=== PATIENT | male | born 1965 | race Caucasian/White ===

== ENCOUNTER 2016-06-30 12:52 | Emergency (ER) | payer OTHER ==
[2016-06-30] MEDS ORDERED: IBUPROFEN 200 MG TAB PO ONE (13:21)
[2016-06-30 13:52] LABS: COLOR YELLOW; LEUKOCYTE ESTERASE,URINE NEGATIVE (NEGATIVE); NITRITE,URINE NEGATIVE (NEGATIVE)
[2016-06-30] MEDS ORDERED: NS 1,000 ML IV ONE (13:55)
[2016-06-30 14:14] LABS: % IMMATURE GRANULYOCYTES 0.3 % (0.0-1.1); ABSOLUTE IMMATURE GRANULOCYTES 0.02 10^3/uL (0.00-0.10); ADD DIFF? NO; ADD MORPH? NO; ADD SCAN? NO; ATYPICAL LYMPHOCYTE FLAG 10 (0-99); FRAGMENT RBC FLAG 0 (0-99); HEMATOCRIT 39.7 % (40.0-51.0); HEMOGLOBIN 14.1 g/dL (13.7-17.5); LEFT SHIFT FLG 0 (0-99); LIPEMIA HEMOLYSIS FLAG 90 (0-99); MEAN CELL HEMOGLOBIN 32.5 pg (27.9-34.1); MEAN CELL HEMOGLOBIN CONCENTR. 35.5 g/dL (32.4-36.7); MEAN CELL VOLUME 91.5 fL (81.5-99.8); MEAN PLATELET VOLUME 9.3 fL (8.7-11.7); PLATELET CLUMPS FLAG 0 (0-99); PLATELET COUNT 261 10^3/uL (150-400); RED BLOOD CELL COUNT 4.34 10^6/uL (4.40-6.38); RED CELL DISTRIBUTION WIDTH 12.6 % (11.5-15.2)
[2016-06-30 14:32] LABS: ANION GAP 6 mEq/L (8-16); CALCIUM 9.5 mg/dL (8.5-10.4); CARBON DIOXIDE 26 mEq/l (22-31); CHLORIDE 105 mEq/L (97-110); CREATININE 1.2 mg/dL (0.7-1.3); GLOMERULAR FILTRATION RATE > 60; GLUCOSE 91 mg/dL (70-100); POTASSIUM 4.2 mEq/L (3.5-5.2); SODIUM 137 mEq/L (134-144)
[2016-06-30] MEDS ORDERED: IOPAMIDOL (ISOVUE-300) 100 ML BTL IV ONE (15:22)
--- NOTE | 2016-06-30 16:46 | UCPHY ---
H & P Patient Type: Established Chief Complaint Nursing Narrative: c/o bilat flank pain with Nausea today pain for 3 days with freq urinations- states laying flat inc. pain Time Seen by Provider: 06/30/16 13:49 HPI/ROS: This patient reports bilateral flank pain for 2 days gradual in onset the feels different to him than typical musculoskeletal back pain that he has had at times. Symptoms worsen when he is supine he reports simultaneous onset of lower abdominal pain that is bilateral. He describes the nature the pain as sharp at times and achy other times. Does not seem directly related to movement. He has taken Motrin with partial improvement-600 mg last night and 600 on arrival here with no other medications. He does feel he has partial relief from the Motrin. He also reports associated urinary symptoms of urgency and frequency which are unusual for him. ROS: No fevers. No constitutional symptoms. HEENT: No URI symptoms. No sore throat. Pulmonary: No shortness of breath or chest pain. Cardiovascular: No lightheadedness. No lower extremity swelling. No leg discoloration. : No testicle pain or swelling. No urethral discharge. No dysuria. No genital lesions. Musculoskeletal: No acute injuries. Neuro: No numbness tingling or focal weakness. No bowel or bladder incontinence. 10 point ROS is otherwise negative. Source: Patient Exam Limitations: No limitations - Personal History Current Tetanus Diphtheria and Acellular Pertussis (TDAP): Yes - Medical/Surgical History Hx Asthma: Yes Hx Chronic Respiratory Disease: No Hx Diabetes: No Hx Cardiac Disease: No Hx Renal Disease: No Hx Cirrhosis: No Hx Alcoholism: No Hx HIV/AIDS: No Hx Splenectomy or Spleen Trauma: No Other PMH: ortho - Family History Significant Family History: No pertinent family hx - Social History Smoking Status: Never smoked Alcohol Use: Occasionally Drug Use: None - Physical Exam Exam: General Appearance: Alert, no distress. Eyes: Pupils equal and round no pallor or injection. ENT, Mouth: Mucous membranes moist. Respiratory: There are no retractions, lungs are clear to auscultation. Cardiovascular: Regular rate and rhythm. Gastrointestinal: Normoactive to hypoactive, soft, moderate diffuse lower belly tenderness with no guarding or rebound. Back: No midline tenderness or paraspinous tenderness. He does have increased pain with full forward flexion. Straight leg raise reveals increased pain in the low back with left leg raise at 20. Neurological: Alert with no focal deficits. The patient maintains normal light touch sensory exam bilateral lower extremities, 5/5 strength in great toe dorsiflexion and plantar flexion bilaterally. 2+ symmetric patellar DTRs bilaterally. Skin: Warm and dry, no rashes. Musculoskeletal: Neck is supple nontender. Extremities are symmetrical, full range of motion. Psychiatric: Mood and affect are normal DIFFERENTIAL DIAGNOSIS: After history and physical exam differential diagnosis was considered for low back disc herniation, ureteral stone, a prostatitis, pyelonephritis, aortic aneurysm, aortic dissection, diverticulitis, appendicitis Constitutional: Initial Vital Signs Temperature (C) 37.2 C 06/30/16 13:17 Heart Rate 69 06/30/16 13:17 Respiratory Rate 18 06/30/16 13:17 Blood Pressure 146/86 H 06/30/16 13:17 O2 Sat (%) 97 06/30/16 13:17 O2 Delivery Mode Room Air Allergies/Adverse Reactions: No Known Allergies Allergy (Unverified 06/30/16 14:30) Home Medications: Medication Instructions Recorded Hydrocodone/APAP 5/325 [[place] 1 - 2 tab PO Q4PRN PRN #20 tab 06/30/16 5/325 (*)] Ibuprofen [Motrin (*)] 600 mg PO Q6 PRN #30 tab 06/30/16 Methocarbamol [Robaxin 750 mg (*)] 750 - 1,500 mg PO QID PRN #30 tab 06/30/16 Sulfamethox/Tmp 800/160 mg 1 tab PO BID #20 tab 06/30/16 [Bactrim Ds] Medical Decision Making ED Course/Re-evaluation: He received ibuprofen shortly after arrival on declined any further analgesics. However on repeat exam he still has significant belly tenderness after initial labs are normal. His urinalysis is normal, CBC, electrolytes. Given his ongoing symptoms and belly tenderness symptom for CT imaging rule out aortic pathology or diverticulitis or appendicitis. This study is also normal. I suspect this patient may have prostatitis despite his clean urine given his urgency frequency other symptoms. I counseled him regarding this. We will treat him with Bactrim. I also demonstrated low back stretches it may help with low back pain. He will follow up with Dr. Macdonald for primary and with urologist for any ongoing urinary symptoms despite the treatment plan. He does not have a surgical abdomen and we ruled out aortic pathology, appendicitis. No clinical evidence of other significant pathology. - Data Points Laboratory Results: Laboratory Results 06/30/16 14:09 06/30/16 14:09 06/30/16 06/30/16 14:09 13:47 WBC 5.78 10^3/uL (3.80-9.50) RBC 4.34 L 10^6/uL (4.40-6.38) Hgb 14.1 g/dL (13.7-17.5) Hct 39.7 L % (40.0-51.0) MCV 91.5 fL (81.5-99.8) MCH 32.5 pg (27.9-34.1) MCHC 35.5 g/dL (32.4-36.7) RDW 12.6 % (11.5-15.2) Plt Count 261 10^3/uL (150-400) MPV 9.3 fL (8.7-11.7) Neut % (Auto) 64.4 % (39.3-74.2) Lymph % (Auto) 24.9 % (15.0-45.0) [place] % (Auto) 8.5 % (4.5-13.0) Eos % (Auto) 1.6 % (0.6-7.6) Baso % (Auto) 0.3 % (0.3-1.7) Nucleat RBC Rel Count 0.0 % (0.0-0.2) Absolute Neuts (auto) 3.72 10^3/uL (1.70-6.50) Absolute Lymphs (auto) 1.44 10^3/uL (1.00-3.00) Absolute Monos (auto) 0.49 10^3/uL (0.30-0.80) Absolute Eos (auto) 0.09 10^3/uL (0.03-0.40) Absolute Basos (auto) 0.02 10^3/uL (0.02-0.10) Absolute Nucleated RBC 0.00 10^3/uL (0-0.01) Immature Gran % 0.3 % (0.0-1.1) Immature Gran # 0.02 10^3/uL (0.00-0.10) Sodium 137 mEq/L (134-144) Potassium 4.2 mEq/L (3.5-5.2) Chloride 105 mEq/L (97-110) Carbon Dioxide 26 mEq/l (22-31) Anion Gap 6 mEq/L (8-16) BUN 12 mg/dL (7-23) Creatinine 1.2 mg/dL (0.7-1.3) Estimated GFR > 60 Glucose 91 mg/dL (70-100) Calcium 9.5 mg/dL (8.5-10.4) Urine Color YELLOW Urine Appearance CLEAR Urine pH 6.0 (5.0-7.5) Ur Specific [place] 1.025 (1.002-1.030) Urine Protein NEGATIVE (NEGATIVE) Urine Ketones NEGATIVE (NEGATIVE) Urine Blood NEGATIVE (NEGATIVE) Urine Nitrate NEGATIVE (NEGATIVE) Urine Bilirubin NEGATIVE (NEGATIVE) Urine Urobilinogen 0.2 EU (0.2-1.0) Ur Leukocyte Esterase NEGATIVE (NEGATIVE) Urine Glucose NEGATIVE (NEGATIVE) Medications Given: Discontinued Medications Sodium Chloride (Ns) 1,000 mls @ 0 mls/hr IV ONCE ONE PRN Reason: Wide Open Stop: 06/30/16 13:56 Last Admin: 06/30/16 14:10 Dose: 1,000 mls Ibuprofen (Motrin) 600 mg PO EDNOW ONE Stop: 06/30/16 13:22 Last Admin: 06/30/16 13:34 Dose: 600 mg Departure - Departure Disposition: Home, Routine, Self-Care Clinical Impression: Urgency of urination, Lower abdominal pain Low back pain Qualifiers: Chronicity: acute Back pain laterality: bilateral Sciatica presence: without sciatica Qualifier Code: (M54.5) Low back pain Condition: Good Instructions: Acute Low Back Pain (ED), Prostatitis (ED) Additional Instructions: Diagnosis: 1. Low back pain 2. Urinary urgency 3. Lower abdominal pain The cause of your symptoms is not entirely clear. I suspect prostatitis. Low back mode disc herniation or strain is also possibility. Your CT scan revealed no appendicitis, diverticulitis, aortic abnormalities or other concerning findings. Plan: Ibuprofen 400-600 mg per 6 hours regularly for the next week then as needed. Methocarbamol muscle relaxants as needed. Vicodin or Tylenol as needed for pain. No driving alcohol or work on Vicodin. Stool softener while on Vicodin to prevent constipation Starts daily stretches prior to taking muscle relaxants and Vicodin in the morning. 3-5 minutes each of: "Butterfly stretch," "Sphinx stretch", "pigeon stretch", and hamstring stretch. Avoid lifting more than 5-10 pounds until symptoms improve. Call your primary care physician for a followup appointment in 3-7 days. Follow up with the urologist for urinary symptoms not resolve with the Bactrim antibiotic. Drink plenty of fluids. Go to the emergency department for worsening of your symptoms despite the treatment plan. Referrals: NONE *PRIMARY CARE P,. [Primary Care Provider] - As per Instructions Hima Richter MD [Medical Doctor] - As per Instructions Delroy Macdonald DO [Doctor of Osteopathy] - As per Instructions Prescriptions: Sulfamethox/Tmp 800/160 mg [Bactrim Ds] 1 tab PO BID #20 tab Ibuprofen [Motrin (*)] 600 mg PO Q6 PRN #30 tab PRN Reason: Pain Hydrocodone/APAP 5/325 [[place] 5/325 (*)] 1 - 2 tab PO Q4PRN PRN #20 tab PRN Reason: Pain Methocarbamol [Robaxin 750 mg (*)] 750 - 1,500 mg PO QID PRN #30 tab PRN Reason: Muscle Spasms - PQRS PQRS Measurement: NA
--- NOTE | 2016-06-30 16:51 | CT ---
CT Abdomen and Pelvis With Contrast 1529 hours History: Right-sided abdominal pain. Possible appendicitis. Technique: Spiral imaging was obtained through the abdomen and pelvis during the administration of 90 mL Isovue-300 IV contrast. Images were reviewed in multiple planes. Dose reduction techniques were u tilized. Comparison the prior CT study of July 03, 2009. CT Abdomen and Pelvis Findings: Appendix: Normal. Lung bases: Normal. Liver: Normal. Spleen: Normal. Gallbladder and Bile Ducts: Normal. Pancreas: Normal. Adrenals: Normal. Kidneys: No obstruction or solid masses. Abdominal Aorta: No aneurysm. Pelvic structures: Normal Bladder: Normal. Bowel Loops: There are scattered incidental uncomplicated diverticula of the sigmoid colon.. No bowel obstruction, ascites, or significant retroperitoneal lymphadenopathy. Skeletal system: Normal. Impression: No significant abnormality within the abdomen and pelvis. Incidental uncomplicated diverticula of the sigmoid colon. These findings were discussed by telephone with Dr. Aron Celestin at 1650 hrs.
[2016-06-30 17:02] VITALS: BP 122/62; PULSE 85; RESP 18; TEMP 98; O2SAT 97
== END 2016-06-30 17:01 | disposition home or self-care (01) ==
LOC: CED 12:52
DX: R39.15 Urgency of urination (principal); R10.30 Lower abdominal pain, unspecified; M54.5 Low back pain
CPT/HCPCS: 74177-PO; 80048-PO; 81003-PO; 85025-PO; 96360-PO; 99214-PO; G0463-PO; Q9967